=== PATIENT | female | born 1965 | race Caucasian/White ===

== ENCOUNTER → 2017-01-21 | Outpatient (CLI) | payer BC ==
--- NOTE | 2017-01-21 10:06 | KCIC ---
PROCEDURE Lumbosacral spine series. HISTORY Low back pain and right foot pain. Numbness for 1 month. No known injury. TECHNIQUE Three views of the lumbosacral spine are submitted for review. No comparison is available. FINDINGS There are 5 lumbar type vertebral bodies. There is no fracture or dislocation. Vertebral body height and interspace height are maintained. IMPRESSION Negative for fracture. Electronically signed by: Can Blanco MD (January 21, 2017 10:05:56)
== END | disposition home or self-care (01) ==
LOC: KCIC 08:34
PROVIDERS: ATTEND Internal Medicine Rheumatology
DX: M54.5 Low back pain (principal); M79.671 Pain in right foot; R20.0 Anesthesia of skin
CPT/HCPCS: 72100